=== PATIENT | male | born 1950 | race Caucasian/White ===

== ENCOUNTER → 2018-01-13 08:00 | Outpatient (BNVA) | payer MEDICARE, BC, SELFPAY | PROVIDERS: Visit Provider Student in an Organized Health Care Education/Training Program | DX: S82.851D Displaced trimalleolar fracture of right lower leg, subsequent encounter for closed fracture with routine healing (principal) | CPT/HCPCS: 99213; 73610 ==

== ENCOUNTER 2018-01-13 15:17 | Outpatient (CLI) | payer MEDICARE, BC, SELFPAY ==
--- NOTE | 2018-01-13 08:25 | DI.RAD_ITS ---
SYMPTOMS/DIAGNOSIS: PAIN RIGHT ANKLE: Three views. Comparison 10/05/17. There are again seen side plates and screws transfixing fractures in the distal tibial and fibula. There has been no change in alignment of the orthopedic hardware compared to the prior examination. The fractures appear to be healing well. No new fractures or dislocations are seen. There is soft tissue swelling about the ankle laterally. The bones appear osteopenic suggesting decreased use.
== END 2018-01-13 15:37 ==
PROVIDERS: PCP Family Medicine; Visit Provider Student in an Organized Health Care Education/Training Program
DX: M25.571 Pain in right ankle and joints of right foot (principal); M85.88 Other specified disorders of bone density and structure, other site; S82.851D Displaced trimalleolar fracture of right lower leg, subsequent encounter for closed fracture with routine healing
CPT/HCPCS: 73610

== ENCOUNTER 2018-01-16 00:49 | Outpatient (CLI) | payer MEDICARE, BC, SELFPAY ==
--- NOTE | 2018-01-16 13:12 | DI.CT_ITS ---
SYMPTOM/DIAGNOSIS: ANKLE PAIN, EVALUATE ANKLE UNION, CLOSED FX S82.856J RIGHT ANKLE CT: Multiple contiguous axial images of the right ankle were obtained. Sagittal and coronal reformatted images were evaluated on the Siem[employer] work station. There is artifact from the patient's orthopedic hardware. There are two screws seen in the medial malleolus. The medial malleolar fracture appears healed. There is a well corticated, 0.4 cm. osseous density at the posterior aspect of the medial malleolus which appears to represent an old fracture fragment. There is a side plate and screws seen in the distal fibula. The fracture appears to be healed. There is a 0.9 cm., well corticated osseous density adjacent to the distal aspect of the fibula which likely represents an old fracture fragment. Two well corticated osseous densities are also seen at the anterior aspect of the distal tibial fibular joint, again representing old fracture fragments. There is a single screw seen transfixing the posterior malleolar fracture. Portions of the fracture line are still visualized, particularly inferiorly suggesting an incompletely healed fracture. No new fractures or dislocations are seen. Mild degenerative changes are seen at the ankle joint. There is soft tissue swelling about the ankle. No focal fluid collections are seen. No soft tissue masses are appreciated. IMPRESSION: 1. Post surgical changes of internal fixation of a trimalleolar fracture. 2. Artifact from the patient's orthopedic hardware. 3. Visualization of a short portion of the posterior malleolar fracture suggesting some incomplete healing. 4. Completely healed distal fibula and medial malleolar fractures.
== END 2018-01-16 01:09 ==
PROVIDERS: PCP Family Medicine; Visit Provider Physician Assistant
DX: M25.571 Pain in right ankle and joints of right foot (principal); S82.851D Displaced trimalleolar fracture of right lower leg, subsequent encounter for closed fracture with routine healing; Z47.89 Encounter for other orthopedic aftercare
CPT/HCPCS: 73700

== ENCOUNTER → 2018-01-17 08:10 | Outpatient (BNVA) | payer MEDICARE, BC, SELFPAY | PROVIDERS: PCP Family Medicine; Referring Provider Family Medicine; Visit Provider Student in an Organized Health Care Education/Training Program | DX: R69 Illness, unspecified (principal) ==

== ENCOUNTER 2018-01-17 09:03 | Day surgery (SDC) | payer MEDICARE, BC, SELFPAY ==
[2018-01-17 09:10] VITALS: BP 137/81; PULSE 57; RESP 16; TEMP 36.6; O2SAT 96
[2018-01-17] MEDS: Lactated Ringers 1,000 ML 80 ML IV (09:56)
--- NOTE | 2018-01-17 10:46 | W.PM.DSUDISC ---
Discharge Plan Disposition Patient Disposition: HOME Condition: Good Discharge Details Reason For Visit: Removal of painful hardware, Right Ankle Attending Provider: Adair Lu Primary Care Provider: Natalia Wick Home Meds and New Rx's Prescriptions: New ibuprofen 600 mg tablet 600 mg PO TID PRNQty: 60 RF: 3 acetaminophen 500 mg capsule 1,000 mg PO Q8H PRN (Reason: pain) Qty: 60 RF: 3 No Action fluticasone-salmeterol [Advair Diskus] 1 EACH blister with device 1 puff Inhalation BID RF: 0 sildenafil [Viagra] 50 MG tablet 50 mg PO PRN RF: 0 aspirin 81 MG tablet,delayed release (DR/EC) 81 mg PO DAILY RF: 0 albuterol sulfate [ProAir HFA] 8.5 GM HFA aerosol inhaler 1 puff Inhalation Q4H PRN RF: 0 atorvastatin 40 MG tablet 40 mg PO DAILY Qty: 90 RF: 11 sertraline 100 MG tablet 100 mg PO DAILY RF: 0 lisinopril 10 MG tablet 10 mg PO HS RF: 0 omeprazole 20 MG capsule,delayed release(DR/EC) 20 mg PO HS RF: 0 Finasteride 5 MG tablet 5 mg PO HS RF: 0 Discharge Instructions Additional Instructions: Activity: You may bear weigh as tolerated on the right ankle. Whenever you are mobilizing you should be in the Fracture Walker Boot. You may remove it when not mobilizing. You should keep the leg elevated for the first few days. You may use crutches as needed for support but not required. Dressings: The initial dressings may be removed after 48 hours. The wound may get wet at that point. You should cover with a bandaid until follow-up. Medications: - You should take the Acetaminophen and Ibuprofen for baseline pain control. You may also apply ice. Follow-up: 10 days Equipment/Supplies: Brace Activity:: Elevate Remove Dressings/Wound Care:: 48 hours Shower/Bathe:: 48 hours Diet:: As Tolerated Discharge Orders Discharge Orders: Discharge Order (Routine); Ordered 01/17/18 Ordered By: Adair Lu DS: Diagnosis Discharge Diagnosis (1) Pain from implanted hardware: Status: Acute
--- NOTE | 2018-01-17 11:16 | DI.RAD_ITS ---
SYMPTOMS/DIAGNOSIS: PAINFUL ORTHOPEDIC HARDWARE RIGHT ANKLE IN THE OR: Fluoroscopy Time: 26.3 sec 0.79 mGy Fluoroscopy was utilized by Dr. Lu during the removal of orthopedic hardware in the ankle. Please refer to the procedure report for complete details.
[2018-01-17 11:22] VITALS: BP 110/60; PULSE 61; RESP 13; TEMP 36.1; O2SAT 93
[2018-01-17 11:27] VITALS: BP 107/58; PULSE 58; RESP 13; TEMP 36.3; O2SAT 95
[2018-01-17 11:32] VITALS: BP 104/63; PULSE 59; RESP 13; TEMP 36.3; O2SAT 95
[2018-01-17 11:47] VITALS: BP 115/76; PULSE 63; RESP 16; TEMP 36.4; O2SAT 95
[2018-01-17 12:31] VITALS: BP 134/75; PULSE 57; RESP 16; TEMP 35.9; O2SAT 99
--- NOTE | 2018-01-18 09:24 | ROE_ITS ---
REPORT OF OPERATIVE PROCEDURE DATE OF SURGERY January 17, 2018 PREOPERATIVE DIAGNOSES Painful hardware of right ankle with malunion. POSTOPERATIVE DIAGNOSES Painful hardware of right ankle with malunion. SURGERY Removal of hardware from right ankle. SURGEON Adair Lu M.D. FINDINGS Two screws in the medial aspect of the ankle were removed without difficulty. The ankle was stressed afterwards to make sure that the malunited medial malleolus had no motion, which it did not. ESTIMATED BLOOD LOSS Minimal. ANESTHESIA MAC. COMPLICATIONS None. DISPOSITION The patient was awakened from anesthesia and taken to the PACU in stable condition. INDICATION FOR PROCEDURE Jesus, who goes by Denton, has been recovering from a right ankle fracture status post ORIF about seven months ago. He has had good progress with his activity, however has had some persistent pain over the medial aspect of the right ankle. There was one screw transfixed in the medial malleolar fracture, w hich appeared to be very close to the medial shoulder of the tibial talar joint. As he has increased his activity, he has had pinpoint point deep within the medial side. A CT scan showed that the medial malleolus had healed, although in a slightly malunited position. That one screw was quite close to t he shoulder of the tibial plafond. Given the persistence of the pain, and the re-creation of the symp toms in the office, I did offer operative intervention in the form of screw removal. I discussed the risks of the procedure to include bleeding, infection, pain, stiffness, re-fracture. Despite these ri sks, he elects to proceed. PROCEDURE DESCRIPTION Denton was greeted in the preoperative holding area. His identity was confirmed and the correct side was identified and marked. The consent was reviewed with the patient and signed. The history and phy sical was updated. Denton was taken back to the Operating Room and placed in the supine position. Pr ophylactic antibiotics in the form of cefazolin were given. A General anesthetic was administered. Th e right leg was then prepped with ChloraPrep and draped in standard fashion. A time-out was performed for safe surgery. The surgical site all the way down to the bone was anesthetized with 0.5% bupivacaine with epinephrin e. The inferior, distal, half of the incision was incised sharply. Once down into the deep tissues, s ome blunt dissection was used to create a path overlying the soft tissue of the medial malleolus. Wi th palpation, a K-wire was used to penetrate the deeper tissues and enter into the cannula of the 3.5 -mm cannulated screw. Fluoroscopy was used to assist in this. The K-wire was able to advance through the screw, and then using an #11-blade, I cut soft tissue right around the K-wire to allow entry of t he screwdriver. The screwdriver was then advanced down to the screw head and the screw was removed wi thout difficulty. This was repeated for both screws. Both screws were removed without any difficultie s on either side. Fluoroscopy was then used to take multiple views to show that the medial malleolus was nonmobile. The ankle was stressed both in eversion and inversion without change to the ankle mort ise. The wound was then irrigated. The skin was closed with #4-0 Nylon. This was followed by Xeroform , 4x4s and a Tegaderm. He was placed in a fracture walker boot. At the end of the case, all counts we re correct.
== END 2018-01-17 12:45 | disposition home or self-care (01) ==
PROVIDERS: PCP Family Medicine; Visit Provider Student in an Organized Health Care Education/Training Program
PROC: (CPT 20680; principal; 2018-01-17 11:00)
DX: T84.84XA Pain due to internal orthopedic prosthetic devices, implants and grafts, initial encounter (principal); S82.851S Displaced trimalleolar fracture of right lower leg, sequela; K21.9 Gastro-esophageal reflux disease without esophagitis; I10 Essential (primary) hypertension; X58.XXXS Exposure to other specified factors, sequela
CPT/HCPCS: 20680; 76000; 73600; J0690; J1100; J1885; J2405

== ENCOUNTER 2018-01-27 08:04 | Outpatient (CLI) | payer MEDICARE, BC, SELFPAY ==
[2018-01-27 10:05] LABS: Cholesterol 192 mg/dL (50-200); HDL Cholesterol 57 mg/dL (40-60); LDL CHOLESTEROL 118 mg/dL (<100); Triglyceride 90 mg/dL (30-150)
== END 2018-01-27 08:24 ==
PROVIDERS: PCP Family Medicine; Visit Provider Family Medicine
DX: I10 Essential (primary) hypertension (principal)
CPT/HCPCS: 36415; 80061; 83721

== ENCOUNTER 2018-01-27 08:44 | Outpatient (CLI) | payer MEDICARE, BC, SELFPAY ==
--- NOTE | 2018-01-27 08:42 | DI.RAD_ITS ---
SYMPTOM/DIAGNOSIS: HARDWARE REMOVAL RT ANKLE RIGHT ANKLE: Three views. Comparison is made with 01/13/18. There are again seen plate and screws in the distal tibia and fibula. No evidence of hardware failure is seen. No acute fractures or dislocations are present. There is soft tissue swelling about the ankle, particularly medially. There is a moderate sized spur at the plantar surface of the calcaneus. There is an enthesophyte at the Achilles insertion on the calcaneus. Vascular calcifications are present. IMPRESSION: Stable right ankle.
== END 2018-01-27 09:04 ==
PROVIDERS: PCP Family Medicine; Visit Provider Physician Assistant
DX: S82.851D Displaced trimalleolar fracture of right lower leg, subsequent encounter for closed fracture with routine healing (principal); M79.89 Other specified soft tissue disorders; M77.31 Calcaneal spur, right foot
CPT/HCPCS: 36415; 80061; 83721; 73610

== ENCOUNTER → 2018-04-11 08:10 | Outpatient (BNVA) | payer MEDICARE, BC, SELFPAY | PROVIDERS: PCP Family Medicine; Visit Provider Nurse Practitioner Gerontology | DX: R69 Illness, unspecified (principal) | CPT/HCPCS: 99204 ==

== ENCOUNTER 2018-04-11 09:31 | Outpatient (CLI) | payer MEDICARE, BC, SELFPAY ==
[2018-04-11 10:00] LABS: Abs Immature Grans 0.03 k/cumm (0.0-0.09); Absolute Basophil Count 0.02 k/cumm (0.0-0.2); Absolute Eosinophil Count 0.05 k/cumm (0.0-0.7); Absolute Lymphocyte Count 1.06 k/cumm (1.2-3.4); Absolute Neutrophil Count 4.11 k/cumm (1.2-6.7); Basophils % 0.3; Eosinophils % 0.9; HCT 46.9 % (40.0-50.0); Immature Grans % 0.5; Lymphocytes % 18.4; Mean Corp. HGB Concentration 34.1 g/dL (32.0-36.0); Mean Corpuscular Hemoglobin 33.6 pg (27.0-33.0); Mean Corpuscular Volume 98.5 fL (80-95); Mean Platelet Volume 9.8 fL (8.0-11.0); Monocytes % 8.7; Neutrophils % 71.2; Platelet Count 205 x1000/uL (130-400); RBC 4.76 m/cumm (4.50-6.00); White Blood Cell Count 5.77 k/cumm (4.4-10.8)
[2018-04-11 10:59] LABS: ALT 30 U/L (12-78); AST 17 U/L (15-37); Albumin 3.8 g/dL (3.4-5.0); Alkaline Phosphatase 89 U/L (46-116); BUN 21 mg/dL (7-18); Bilirubin, Total 0.5 mg/dL (0.2-1.0); CREATININE 0.98 mg/dL (0.70-1.30); Chloride 102 mmol/L (98-107); Cholesterol 178 mg/dL (50-200); Glucose 107 mg/dL (70-100); HDL Cholesterol 53 mg/dL (40-60); LDL CHOLESTEROL 103 mg/dL (<100); Potassium 4.8 mmol/L (3.5-5.1); Sodium 140 mmol/L (136-145); Total Protein 6.8 g/dL (6.4-8.2); Triglyceride 106 mg/dL (30-150)
[2018-04-11 11:05] LABS: Calcium 9.6 mg/dL (8.5-10.1)
[2018-04-12 10:32] LABS: PSA, Screening 0.7 ng/ml (0-4.5)
== END 2018-04-11 09:51 ==
PROVIDERS: Family Medicine; PCP Family Medicine; Visit Provider Nurse Practitioner Gerontology
DX: N40.1 Benign prostatic hyperplasia with lower urinary tract symptoms (principal); J45.909 Unspecified asthma, uncomplicated; R39.9 Unspecified symptoms and signs involving the genitourinary system; I10 Essential (primary) hypertension; E78.5 Hyperlipidemia, unspecified; Z12.5 Encounter for screening for malignant neoplasm of prostate; N32.81 Overactive bladder
CPT/HCPCS: 51798; 80053; 80061; 83721; 84153; 99204; 99215; 85025

== ENCOUNTER → 2018-05-08 08:16 | Outpatient (BNVA) | payer MEDICARE, BC, SELFPAY | PROVIDERS: PCP Family Medicine; Visit Provider Nurse Practitioner Gerontology | DX: N32.81 Overactive bladder (principal) | CPT/HCPCS: 99213 ==

== ENCOUNTER → 2018-08-28 12:44 | Outpatient (BNVA) | payer MEDICARE, BC, SELFPAY | PROVIDERS: PCP Family Medicine; Referring Provider Family Medicine; Visit Provider Physical Therapy Assistant | DX: Z12.11 Encounter for screening for malignant neoplasm of colon (principal); Z86.010 Personal history of colon polyps; I10 Essential (primary) hypertension ==

== ENCOUNTER 2018-09-05 07:59 | Day surgery (SDC) | payer MEDICARE, BC, SELFPAY ==
--- NOTE | 2018-09-05 07:12 | W.PM.DSUDISC ---
Discharge Plan Disposition Patient Disposition: HOME Condition: Good Discharge Details Reason For Visit: Colonoscopy Attending Provider: Mulu Burt Primary Care Provider: Natalia Wick Home Meds and New Rx's Prescriptions: Continued finasteride 5 mg tablet 5 mg PO HS RF: 0 lisinopril 20 mg tablet 20 mg PO DAILY Qty: 90 RF: 5 Shingrix Adjuvant Component-PF suspension 1 ml IM ONCE Qty: 0.5 RF: 1 Myrbetriq 25 mg tablet extended release 24 hr 25 mg PO DAILY Qty: 90 RF: 3 fluticasone propion-salmeterol [Advair Diskus] 1 EACH blister with device 1 puff Inhalation BID RF: 0 sildenafil [Viagra] 50 MG tablet 50 mg PO PRN RF: 0 aspirin 81 MG tablet,delayed release (DR/EC) 81 mg PO DAILY RF: 0 atorvastatin 40 MG tablet 40 mg PO DAILY Qty: 90 RF: 11 albuterol sulfate [ProAir HFA] 90 mcg/actuation HFA aerosol inhaler 1 puff Inhalation Q4H PRN (Reason: shortness of breath or wheezing) Qty: 8.5 RF: 6 tamsulosin [Flomax] 0.4 mg capsule 0.4 mg PO DAILY Qty: 90 RF: 4 ibuprofen 600 mg tablet 600 mg PO TID PRNQty: 60 RF: 3 acetaminophen 500 mg capsule 1,000 mg PO Q8H PRN (Reason: pain) Qty: 60 RF: 3 sertraline 100 MG tablet 100 mg PO DAILY RF: 0 omeprazole 20 MG capsule,delayed release(DR/EC) 20 mg PO HS RF: 0 Discontinued bisacodyl [Dulcolax (bisacodyl)] 5 mg tablet,delayed release (DR/EC) 5 mg PO ONCE Qty: 4 RF: 0 polyethylene glycol 3350 17 gram/dose powder 238 g PO ONCE Qty: 238 RF: 0 Discharge Instructions Instructions: Colonoscopy (DC), Diverticulosis (DC) Additional Instructions: Findings: Mild diverticulosis Follow up: 5 years Please call if you develop: fevers >101.5 Nausea or Vomiting Abdominal pain that is not transient DAY SURGERY UNIT POST COLONOSCOPY INSTRUCTIONS 1. Because there will be medication in your system for the next 24 hours, you may feel a little sleepy. Your coordination will be affected. Therefore: a. Do not drive or operate dangerous equipment for 24 hours. b. Do not drink alcohol beverages for 24 hours (not even beer). c. Plan to go home and rest for the day. 2. Generally there are no restrictions on your activity after a day or so has gone by, but you may feel a bit fatigued for a few days. 3 After you arrive home you may have a light meal and return to a normal diet as you can tolerate it without feeling sick to your stomach. 4. After surgery, you may feel pain or discomfort. This should be only transient, but if it persists please contact your doctor. 5. If there are any questions regarding the findings of your procedure, please feel free to contact your doctor. 6. If you are unable to contact your doctor with a problem, contact the hospital at [phone]. 7. Continue all your regular medications unless directed otherwise. I understand the above instructions and have no questions. Signature of Patient or Responsible Adult Escort Date/Time Name of Responsible Adult Escort Signature of Nurse Date/Time Activity:: Activity as Tolerated Diet:: high fiber diet Discharge Orders Discharge Orders: Discharge Order (Routine); Ordered 09/05/18 Ordered By: Mulu Burt DS: Diagnosis Discharge Diagnosis (1) S/P colonoscopy: Status: Acute (2) Diverticulosis: Status: Acute
--- NOTE | 2018-09-05 07:13 | COLE_ITS ---
Date of service: 09/05/18 Time of Service: 09:52 Colonoscopy Report Date of procedure: 09/05/18 Pre-op diagnosis general: Hx of polyps, Family history of colon Cancer Post-op diagnosis procedure note: same (mild diverticulosis) Procedure: Colonoscopy Surgeon: Mulu Burt Anesthesia proc note operative: other (General/ ASA 2/Carmelita Andrews, SADIQ) Estimated blood loss (mL): 0 Pathology: none sent Complications: None Disposition: same day Indications: Mr. Anne is a pleasant 68 year old with a family history of colon Cancer and a personal history of polyps seen in the office for a follow up Colonoscopy. Risks, benefits and complications have been reviewed. Complications include but are not limited to bleeding, pain, perforation, missed small lesion/polyp, sore throat, aspiration and adverse reaction to the medic ations. Questions were entertained and answered to their satisfaction and they wished to proceed. No guarantees were given or implied. Prep: Miralax/Dulcolax Procedure Start Time: :52 Procedure End Time: 10:25 Retraction Time: 21 Findings: Mild diverticulosis No polyps this time Procedure Description: After informed consent was obtained the patient was taken to the procedure room and placed in a left decubitous position. Monitors were applied and a time out was done. The patients name, date of , procedure, allergies to medications and metal in their body was reviewed. The patient was then sedated. Once sedated and comfortable a rectal exam was done. External exam was normal. Internal exam revealed a normal sphincter tone and no palpable masses. The prostate felt smooth. The scope was then introduced and retro-flexed. No internal hemorrhoids were identified. The scope was then advanced to the cecum without difficulty. His sigmoid colon is tortuous. Diverticulosis of the descending colon and sigmoid colon. The TI and appendiceal orifice were identified. The prep was good. The scope was then slowly retracted over 21 minutes back into the rectum. There were no polyps identified. The scope was removed and the patient was woken up and taken back to Same day surgery in stable condition. The patient tolerated the procedure well and there were no immediate complications. Follow up: The patient should follow up in 5 years, due to her family history, unless they develop changes in bowel habits or other new gastrointestinal complaints.
[2018-09-05 08:18] VITALS: BP 123/83; PULSE 58; RESP 18; TEMP 35.2; O2SAT 95
[2018-09-05] MEDS: Lactated Ringers 1,000 ML 80 ML IV (08:45)
[2018-09-05 11:00] VITALS: BP 119/73; PULSE 54; RESP 16; TEMP 35.2; O2SAT 99
== END 2018-09-05 11:10 | disposition home or self-care (01) ==
LOC: SUR 07:59
PROVIDERS: PCP Family Medicine; Visit Provider Surgery
PROC: 0DJD8ZZ Inspection of Lower Intestinal Tract, Via Natural or Artificial Opening Endoscopic (ICD-10-PCS; CPT 45378; principal; 2018-09-05 10:00)
DX: Z12.11 Encounter for screening for malignant neoplasm of colon (principal); K57.30 Diverticulosis of large intestine without perforation or abscess without bleeding; K63.89 Other specified diseases of intestine; Z86.010 Personal history of colon polyps
CPT/HCPCS: G0105

== ENCOUNTER → 2018-09-06 08:07 | Outpatient (BNVA) | payer MEDICARE, BC, SELFPAY | PROVIDERS: PCP Family Medicine; Visit Provider Nurse Practitioner Gerontology | DX: N32.81 Overactive bladder (principal) | CPT/HCPCS: 99213 ==

== ENCOUNTER 2018-11-22 13:19 | Outpatient (CLI) | payer MEDICARE, BC, SELFPAY ==
--- NOTE | 2018-11-22 11:21 | DI.RAD_ITS ---
SYMPTOMS/DIAGNOSIS: ANKLE PAIN AFTER OPEN REDUCTION AND INTERNAL FIXATION RIGHT ANKLE: When compared with the prior study of 01/27/2018, there has been no appreciable interval change. Again noted is the sideplate and screw fixation device affixed to the distal fibula and distal tibial screw. There are mild degenerative changes involving the mortise joint.
== END 2018-11-22 13:39 ==
PROVIDERS: PCP Family Medicine; Referring Provider Family Medicine; Visit Provider Student in an Organized Health Care Education/Training Program
DX: M25.571 Pain in right ankle and joints of right foot (principal); Z98.890 Other specified postprocedural states; Z87.81 Personal history of (healed) traumatic fracture; I10 Essential (primary) hypertension; G89.29 Other chronic pain; Z96.7 Presence of other bone and tendon implants
CPT/HCPCS: 20605; 99213; 73610; J1030

== ENCOUNTER → 2019-01-04 09:47 | Outpatient (BNVA) | payer MEDICARE, BC, SELFPAY | PROVIDERS: PCP Family Medicine; Referring Provider Family Medicine; Visit Provider Student in an Organized Health Care Education/Training Program | DX: M25.571 Pain in right ankle and joints of right foot; G89.29 Other chronic pain; Z98.890 Other specified postprocedural states; I10 Essential (primary) hypertension | CPT/HCPCS: 99212; 99213 ==

== ENCOUNTER 2019-02-09 01:39 | Outpatient (CLI) | payer MEDICARE, BC, SELFPAY ==
--- NOTE | 2019-02-09 08:43 | DI.CT_ITS ---
EXAM: CT LOWER EXTREMITY RT WO CLINICAL HISTORY: Tibiotalar pain after ankle fracture fixation,rt ankle pain,M25.571, G89.29 TECHNIQUE: Images were performed from distal 3rd of the tibia and fibula through the metatarsal jacqueline on without IV contrast.. COMPARISON: CT lower extremity RT wo from 01/16/2018 XR ANKLE RT COMPLETE from 11/22/2018 FINDINGS: There is soft tissue edema greatest around the medial malleolus. There is some artifact related to the presence of orthopedic hardware. The bones appear osteoporotic. No acute fracture is seen. There is slight remaining lucency at the posterior malleolar fracture. There are several small corticated b silvana fragments adjacent to both malleoli. No talar dome defect is seen. There are some degenerative ch anges at tibiotalar joint. No abnormal lucencies are seen around the hardware. Heel spurs are seen. IMPRESSION: The bones appear osteoporotic. Postsurgical and degenerative changes are noted. No acute abnormality is seen.
== END 2019-02-09 01:59 ==
PROVIDERS: PCP Family Medicine; Visit Provider Student in an Organized Health Care Education/Training Program
DX: M25.571 Pain in right ankle and joints of right foot (principal); M81.0 Age-related osteoporosis without current pathological fracture; M79.89 Other specified soft tissue disorders; M19.071 Primary osteoarthritis, right ankle and foot; M77.31 Calcaneal spur, right foot; G89.29 Other chronic pain
CPT/HCPCS: 73700

== ENCOUNTER → 2019-02-15 14:05 | Outpatient (BNVA) | payer MEDICARE, BC, SELFPAY | PROVIDERS: PCP Family Medicine; Referring Provider Family Medicine; Visit Provider Student in an Organized Health Care Education/Training Program | DX: M19.171 Post-traumatic osteoarthritis, right ankle and foot (principal) | CPT/HCPCS: 99213 ==

== ENCOUNTER 2019-03-26 15:42 | Outpatient (CLI) | payer MEDICARE, BC, SELFPAY ==
[2019-03-26 16:36] LABS: ALT 28 U/L (16-63); AST 18 U/L (15-37); Alkaline Phosphatase 90 U/L (46-116); Anion Gap 8.9 mmol/L (3-11); BUN 25 mg/dL (7-18); CO2 29.1 mmol/L (21.0-32.0); CREATININE 1.31 mg/dL (0.70-1.30); Calcium 9.2 mg/dL (8.5-10.1); Calculated LDL 102 mg/dL; Chloride 102 mmol/L (98-107); Cholesterol 179 mg/dL (<200); Estimated GFR 54.09 (mL/min/1.73m2); Glucose 88 mg/dL (74-106); HDL Cholesterol 63 mg/dL (40-60); Potassium 4.2 mmol/L (3.5-5.1); Sodium 140 mmol/L (136-145); Total Protein 6.8 g/dL (6.4-8.2); Triglyceride 70 mg/dL (<150)
== END 2019-03-26 16:02 ==
PROVIDERS: PCP Family Medicine; Visit Provider Family Medicine
DX: I10 Essential (primary) hypertension (principal)
CPT/HCPCS: 36415; 80053; 80061

== ENCOUNTER → 2019-04-30 08:01 | Outpatient (BNVA) | payer MEDICARE, BC, SELFPAY | PROVIDERS: PCP Family Medicine; Referring Provider Family Medicine; Visit Provider Nurse Practitioner Gerontology | DX: N32.81 Overactive bladder (principal); I10 Essential (primary) hypertension | CPT/HCPCS: 99213 ==

== ENCOUNTER → 2020-05-27 15:18 | Outpatient (BNVA) | payer MEDICARE, BC, SELFPAY | PROVIDERS: PCP Family Medicine; Referring Provider Family Medicine; Visit Provider Nurse Practitioner Gerontology | DX: N32.81 Overactive bladder (principal) | CPT/HCPCS: 99214 ==

== ENCOUNTER → 2021-06-03 14:52 | Outpatient (BNVA) | payer MEDICARE, BC, SELFPAY | PROVIDERS: PCP Family Medicine; Referring Provider Family Medicine; Visit Provider Nurse Practitioner Gerontology | DX: R69 Illness, unspecified (principal) ==

== ENCOUNTER 2021-06-11 02:33 | Outpatient (CLI) | payer MEDICARE, BC, SELFPAY ==
[2021-06-11 08:28] LABS: ALT 38 U/L (16-63); AST 34 U/L (15-37); Albumin 3.6 g/dL (3.4-5.0); Alkaline Phosphatase 93 U/L (46-116); Anion Gap 6.4 mmol/L (3-11); BUN 22 mg/dL (7-18); Bilirubin, Total 0.5 mg/dL (0.2-1.0); CO2 30.6 mmol/L (21.0-32.0); CREATININE 1.1 mg/dL (0.70-1.30); Calcium 8.8 mg/dL (8.5-10.1); Calculated LDL 86 mg/dL (<100); Chloride 104 mmol/L (98-107); Cholesterol 160 mg/dL (<200); Glucose 104 mg/dL (74-106); HDL Cholesterol 52 mg/dL (40-60); Potassium 4.8 mmol/L (3.5-5.1); Sodium 141 mmol/L (136-145); Total Protein 6.7 g/dL (6.4-8.2); Triglyceride 114 mg/dL (<150)
[2021-06-11 17:48] LABS: PSA, Diagnostic 0.6 ng/mL (0.0-6.5)
== END 2021-06-11 02:34 | disposition home or self-care (01) ==
LOC: LBO 02:34
PROVIDERS: PCP Family Medicine; Visit Provider Family Medicine
DX: E78.5 Hyperlipidemia, unspecified (principal); I10 Essential (primary) hypertension; N40.0 Benign prostatic hyperplasia without lower urinary tract symptoms
CPT/HCPCS: 36415; 80053; 80061; 84153

== ENCOUNTER → 2021-08-27 08:49 | Outpatient (BNVA) | payer MEDICARE, BC, SELFPAY | PROVIDERS: PCP Family Medicine; Visit Provider Nurse Practitioner Gerontology | DX: N32.81 Overactive bladder (principal) | CPT/HCPCS: 51798; 99214 ==

== ENCOUNTER 2022-03-15 11:58 | Outpatient (CLI) | payer MEDICARE, BC, SELFPAY ==
--- NOTE | 2022-03-15 11:45 | DI.RAD_ITS ---
Exam(s) XR SHOULDER LT COMPLETE 2+V EXAM: XR SHOULDER LT COMPLETE 2+V CLINICAL HISTORY: bilateral shoulder pain. TECHNIQUE: 2D digital imaging was performed. Three views. COMPARISON: No exams were available for comparison FINDINGS: BONES: No acute fracture is present. No bony destructive lesion is seen. Spurring at lesser tuberosi ty. JOINTS: No dislocation present. Mild spurring AC joint. Minimal spurring at glenoid. Glenohumeral joint space is maintained. SOFT TISSUE: Normal. IMPRESSION: Mild degenerative changes. DATA REPOSITORY: RADIATION DOSE DELIVERED:
--- NOTE | 2022-03-15 11:45 | DI.RAD_ITS ---
Exam(s) XR SHOULDER RT COMPLETE 2+V EXAM: XR SHOULDER RT COMPLETE 2+V CLINICAL HISTORY: bilateral shoulder pain. TECHNIQUE: 2D digital imaging was performed. Three views. COMPARISON: CR XR SHOULDER LT COMPLETE 2+V from 03/15/2022 FINDINGS: BONES: No acute fracture is present. No bony destructive lesion is seen. JOINTS: No dislocation present. Mild spurring inferior AC joint and undersurface of the acromion. C alcification superior to AC joint. Glenohumeral joint space is maintained. SOFT TISSUE: Normal. IMPRESSION: Mild degenerative changes of the AC joint. DATA REPOSITORY: RADIATION DOSE DELIVERED:
== END 2022-03-15 11:59 | disposition home or self-care (01) ==
LOC: DIORS 11:58
PROVIDERS: PCP Family Medicine; Referring Provider Family Medicine; Visit Provider Student in an Organized Health Care Education/Training Program
DX: M67.911 Unspecified disorder of synovium and tendon, right shoulder (principal); M75.82 Other shoulder lesions, left shoulder
CPT/HCPCS: 20610; 99213; 73030; J1040

== ENCOUNTER 2022-05-24 10:11 | Outpatient (CLI) | payer MEDICARE, BC, SELFPAY ==
[2022-05-24 13:09] LABS: ALT 29 U/L (16-63); AST 23 U/L (15-37); Alkaline Phosphatase 82 U/L (46-116); BUN 23 mg/dL (7-18); Bilirubin, Total 0.6 mg/dL (0.2-1.0); Calcium 9.3 mg/dL (8.5-10.1); Calculated LDL 87 mg/dL (<100); Chloride 101 mmol/L (98-107); Cholesterol 171 mg/dL (<200); Estimated GFR 79.47 (mL/min/1.73m2); Glucose 109 mg/dL (74-106); HDL Cholesterol 65 mg/dL (40-60); Potassium 4.4 mmol/L (3.5-5.1); Sodium 137 mmol/L (136-145); Total Protein 7.2 g/dL (6.4-8.2); Triglyceride 98 mg/dL (<150)
[2022-05-25 10:13] LABS: PSA, Diagnostic 0.7 ng/mL (<=6.5)
== END 2022-05-24 10:12 | disposition home or self-care (01) ==
LOC: LOS 10:11
PROVIDERS: PCP Family Medicine; Referring Provider Family Medicine; Visit Provider Family Medicine
DX: E78.5 Hyperlipidemia, unspecified (principal); I10 Essential (primary) hypertension; R31.9 Hematuria, unspecified
CPT/HCPCS: 36415; 80053; 80061; 84153

== ENCOUNTER → 2022-06-17 08:13 | Outpatient (BNVA) | payer MEDICARE, BC, SELFPAY | PROVIDERS: PCP Family Medicine; Referring Provider Family Medicine; Visit Provider Student in an Organized Health Care Education/Training Program | DX: M75.82 Other shoulder lesions, left shoulder; M67.911 Unspecified disorder of synovium and tendon, right shoulder | CPT/HCPCS: 20610; J1040 ==

== ENCOUNTER → 2022-10-04 14:21 | Outpatient (BNVA) | payer MEDICARE, BC, SELFPAY | PROVIDERS: PCP Family Medicine; Referring Provider Family Medicine | DX: M67.911 Unspecified disorder of synovium and tendon, right shoulder (principal) | CPT/HCPCS: 99213 ==

== ENCOUNTER 2022-10-21 01:25 | Outpatient (CLI) | payer MEDICARE, BC, SELFPAY ==
--- NOTE | 2022-10-21 09:00 | DI.MRI_ITS ---
Exam(s) MR UPPER JOINT RT WO EXAM: MR UPPER JOINT RT WO CLINICAL HISTORY: pain,DYSFUNCTION RT ROTATOR CUFF,M67.911. TECHNIQUE: Multiplanar multisequence MRI was performed. COMPARISON: Plain films 15 March 2021 FINDINGS: BONES: There is no fracture or contusion pattern. JOINTS:The acromioclavicular joint shows moderate inferior spurring and fluid. There is apparent impi ngement on the distal supraspinatus muscle tendon junction. There is a small bony density seen superi or to the AC joint. There is also spurring at the tip of the acromion. The glenohumeral joint shows a small amount of fluid. TENDONS: Supraspinatus: Thickening and edema but no focal tear Infraspinatus: Unremarkable. Subscapularis: Unremarkable. Teres Minor: Unremarkable. Biceps and [place]: Fluid around biceps tendon. Abnormal thickening of proximal biceps tendon with int ermediate signal. Longitudinally oriented tear through the biceps tendon. MUSCLES: Unremarkable. No atrophy. GLENOID LABRUM: Unremarkable on this noncontrast examination. SOFT TISSUES: Unremarkable. OTHER: Subacromial and subdeltoid bursae shows localized fluid which may arise from the AC joint.. IMPRESSION: Degenerative changes of the AC joint with apparent impingement on the supraspinatus muscle tendon arnaud ction, causing thickening and edema of the supraspinatus tendon. Longitudinally oriented tear through biceps tendon with thickening and edema proximally near the anch or. DATA REPOSITORY:
== END 2022-10-21 01:45 ==
LOC: DI 01:25
PROVIDERS: PCP Family Medicine; Visit Provider Student in an Organized Health Care Education/Training Program
DX: M19.012 Primary osteoarthritis, left shoulder; S46.211A Strain of muscle, fascia and tendon of other parts of biceps, right arm, initial encounter; X58.XXXA Exposure to other specified factors, initial encounter
CPT/HCPCS: 73221

== ENCOUNTER → 2022-11-29 14:34 | Outpatient (BNVA) | payer MEDICARE, BC, SELFPAY | PROVIDERS: PCP Family Medicine; Referring Provider Family Medicine; Visit Provider Student in an Organized Health Care Education/Training Program | DX: M67.911 Unspecified disorder of synovium and tendon, right shoulder (principal) | CPT/HCPCS: 20611; J1040 ==

== ENCOUNTER → 2023-01-04 14:20 | Outpatient (BNVA) | payer MEDICARE, BC, SELFPAY | PROVIDERS: PCP Family Medicine; Visit Provider Nurse Practitioner Gerontology | DX: N32.81 Overactive bladder (principal); N40.1 Benign prostatic hyperplasia with lower urinary tract symptoms; R39.89 Other symptoms and signs involving the genitourinary system | CPT/HCPCS: 51798; 99213 ==

== ENCOUNTER → 2023-03-03 13:45 | Outpatient (BNVA) | payer MEDICARE, BC, SELFPAY | PROVIDERS: PCP Family Medicine; Referring Provider Family Medicine; Visit Provider Student in an Organized Health Care Education/Training Program | DX: M67.911 Unspecified disorder of synovium and tendon, right shoulder (principal) | CPT/HCPCS: 20611; J1040 ==

== ENCOUNTER → 2023-05-13 08:01 | Outpatient (BNVA) | payer MEDICARE, BC, SELFPAY | PROVIDERS: PCP Family Medicine; Referring Provider Family Medicine | DX: M67.911 Unspecified disorder of synovium and tendon, right shoulder (principal); M67.813 Other specified disorders of tendon, right shoulder | CPT/HCPCS: 99213 ==

== ENCOUNTER 2023-05-31 11:21 | Day surgery (SDC) | payer MEDICARE, BC, SELFPAY ==
[2023-05-31] VITALS (13 sets, daily range): BP systolic 134–155; BP diastolic 62–112; PULSE 48–63; RESP 9–18; TEMP 35.9–36.6; O2SAT 95–100; BMI 29.9
--- NOTE | 2023-05-31 10:45 | PDOC.DSDIS_ITS ---
Date of service: 05/31/23 Time of Service: 14:21 Discharge Plan Disposition Patient Disposition: Home Condition: Good Discharge Details Reason For Visit: Right biceps tendinosis Attending Provider: Adair Lu Primary Care Provider: Natalia Wick Home Meds and New Rx's Prescriptions: New acetaminophen 500 mg tablet 500 mg PO Q6H PRN (Reason: pain) Qty: 60 2RF tramadol 50 mg tablet 50 mg PO Q6H PRN (Reason: severe postoperative pain) Qty: 10 0RF Rx Instructions: Take one tablet up to every 6 hours as needed for severe pain ibuprofen 600 mg tablet 600 mg PO TID PRN (Reason: pain) Qty: 60 0RF Continued diphth,pertus(acell),tetanus 2.5-8-5 Lf-mcg-Lf/0.5mL syringe 0.5 ml IM ONCE Qty: 0.5 0RF Rx Instructions: as a single dose albuterol sulfate [ProAir HFA] 90 mcg/actuation HFA aerosol inhaler 1 puff Inhalation Q4H PRN (Reason: shortness of breath or wheezing) Qty: 18 6RF atorvastatin 40 mg tablet 40 mg PO DAILY Qty: 90 11RF sertraline 100 mg tablet 100 mg PO DAILY Qty: 90 4RF trazodone 50 mg tablet 50 mg PO QHS PRN (Reason: sleep) Qty: 90 4RF finasteride 5 mg tablet 5 mg PO HS Qty: 90 5RF lisinopril 20 mg tablet 20 mg PO DAILY Qty: 90 5RF tamsulosin [Flomax] 0.4 mg capsule 0.4 mg PO DAILY Qty: 90 4RF omeprazole 20 mg capsule,delayed release(DR/EC) 20 mg PO HS Qty: 90 5RF Myrbetriq 25 mg tablet extended release 24 hr 25 mg PO DAILY Qty: 90 3RF Discharge Instructions Stand Alone Forms: Tabitha Sampson w/BT Referrals: Adair Lu MD [ [facility] STAFF PHYSICIAN] - Equipment/Supplies: Sling Activity:: Activity as Tolerated Remove Dressings/Wound Care:: Do Not Remove Shower/Bathe:: 72 hours and Cover Diet:: As Tolerated Discharge Orders Discharge Orders: Discharge Order (Routine); Ordered 05/31/23 Ordered By: Diamond Rainey
[2023-05-31] MEDS: Acetaminophen 500 MG TAB 1000 MG PO (12:13)
[2023-05-31] MEDS: Celecoxib 200 MG CAP 400 MG PO (12:13)
[2023-05-31] MEDS: Lactated Ringers 1,000 ML 80 ML IV (12:14)
--- NOTE | 2023-05-31 12:27 | W.ANESPRE ---
General Info Date of Service Date Performed: 05/31/23 Height: 5 ft 7 in Weight: 86.7 kg Body Mass Index (BMI): 29.9 Surgical Procedure: Operation Date: 05/31/23 14:55 Proposed Procedure Side Surgeon p Shoulder Arthroscopy w/Biceps Tenotomy, RTC Debridement Right Adair Lu MD Meds Allergies and Home Medications Allergies Allergy/AdvReac Type Severity Reaction Status Date / Time tamsulosin AdvReac muscle Unverified 05/27/23 11:51 weakness terazosin AdvReac dizziness Unverified 05/27/23 11:51 Home Medication Medication Instructions Recorded albuterol sulfate 90 mcg/actuation 1 puff inhalation Q4H PRN 04/27/21 aerosol inhaler (ProAir HFA) shortness of breath or wheezing #18 grams finasteride 5 mg tablet 5 mg PO HS #90 tabs 04/12/22 lisinopril 20 mg tablet 20 mg PO DAILY #90 tabs 04/12/22 tamsulosin 0.4 mg capsule (Flomax) 0.4 mg PO DAILY #90 caps 05/10/22 atorvastatin 40 mg tablet 40 mg PO DAILY #90 tab-caps 05/24/22 sertraline 100 mg tablet 100 mg PO DAILY #90 tabs 05/24/22 trazodone 50 mg tablet 50 mg PO QHS PRN sleep #90 tabs 05/24/22 omeprazole 20 mg capsule,delayed 20 mg PO HS #90 caps 07/05/22 release mirabegron 25 mg tablet,extended 25 mg PO DAILY #90 tabs 11/02/22 release 24 hr (Myrbetriq) diphth,pertus(acell),tetanus 2.5 0.5 ml IM ONCE #0.5 mL 12/20/22 Lf unit-8 mcg-5 Lf/0.5mL IM syringe Current Visit Medications: Current Medications Generic Name Dose Route Start Last Admin Trade Name Freq PRN Reason Stop Dose Admin Acetaminophen 1,000 mg 05/31/23 06:00 05/31/23 12:13 Acetaminophen 500 Mg Tab PO 05/31/23 18:00 1,000 mg PREOP KUNAL Administration Celecoxib 400 mg 05/31/23 06:00 05/31/23 12:13 Celecoxib 200 Mg Cap PO 05/31/23 18:00 400 mg PREOP KUNAL Administration Ringer's Solution 1,000 mls @ 80 mls/hr 05/31/23 06:00 05/31/23 12:14 IV 06/29/23 23:59 80 mls/hr INFUSION KUNAL Administration Cefazolin Sodium/Dextrose 2 gm in 50 mls @ 100 mls/hr 05/31/23 06:00 Ancef Duplex IVPB 05/31/23 16:00 PREOP KUNAL IV Miscellaneous Supplies 1 each 05/31/23 06:00 Iv Access IV 06/29/23 23:59 DIRECTED KUNAL Sodium Chloride 0 ml 05/31/23 06:00 Normal Saline Flush 10 Ml Syr IV 06/29/23 23:59 PRN PRN Sodium Chloride 0 ml 05/31/23 06:00 Normal Saline 10 Ml Vial IJ 06/29/23 23:59 DIRECTED PRN Sterile Water 0 ml 05/31/23 06:00 Water,Injection,Sterile 10 Ml Vial IJ 06/29/23 23:59 DIRECTED PRN Tramadol HCl 50 mg 05/31/23 10:44 Tramadol 50 Mg Tab PO 06/30/23 10:43 Q4H PRN PRN PFSH Active Problems Active Problems: Problem Status Onset Code Biceps tendinosis of right shoulder M67.813 Dysfunction of right rotator cuff M67.911 Sensorineural hearing loss, unilateral, left ear, with unrestricted hearing on the contralateral side H90.42 OAB (overactive bladder) N32.81 RBBB (right bundle branch block) I45.10 Obesity, Class I, BMI 30-34.9 E66.9 Hyperlipidemia E78.5 GERD (gastroesophageal reflux disease) K21.9 Essential hypertension I10 BPH (benign prostatic hyperplasia) 09/28/17 N40.0 Asthma J45.909 Anxiety F41.9 Adenomatous colon polyp D12.6 Medical History Medical History (Updated 05/27/23 @ 11:49 by Aleksandar Bhatt) Tendinitis of left rotator cuff Depo-Medrol injection: 06/17/2022; 03/15/2022 Bruise Deafness in right ear Sensation of fullness in both ears Dysfunction of left eustachian tube Right ankle pain Diverticulosis H/O adenomatous polyp of colon (03/30/13) Colonoscopy at [facility] with Dr Cr Mcnulty showed sessile polyp and turtuous sigmoid with scattered divertic. Asymmetrical sensorineural hearing loss Pain from implanted hardware R ankle Posterior tibial tendinitis, right leg (11/16/17) Hematuria NEG CYSTO PER [facility] RECORDS Duodenitis EROSIVE PER [facility] RECORDS Decreased hearing of right ear (10/20/17) Closed trimalleolar fracture of right ankle with routine healing (06/17/17) S/P SURGERY 06/12 Surgical History Surgical History S/P colonoscopy (~09/05/18) History of bilateral carpal tunnel release History of neck surgery History of colonoscopy Status post open reduction with internal fixation (ORIF) of fracture of ankle Fracture, Open Treatment 05/2017 RIGHT ANKLE PER [facility] RECORDS Tobacco Smoking/Tobacco Use Status: Never Passive smoking exposure: Yes Second hand exposure: Yes Alcohol Alcohol Intake: current Alcohol intake frequency: a few times a week Alcohol type: hard liquor Substance Use Substance use: Never Substance use type: does not use Vital Signs and Lab Results Vital Signs Most Recent Vital Signs in EMR: Most Recent Vital Signs Temp Pulse Resp BP Pulse Ox 36.4 C L 63 16 155/90 H 95 05/31/23 11:45 05/31/23 11:45 05/31/23 11:45 05/31/23 11:45 05/31/23 11:45 Lab Results Blood Type / Crossmatch: No Data to Display Complete Blood Count: No Data to Display Complete Metabolic Panel: No Data to Display Liver Function Panel: No Data to Display Coagulation Panel: No Data to Display Cardiac Panel: No Data to Display Arterial Blood Gas: No Data to Display Venous Blood Gas: No Data to Display Pancreas Panel: No Data to Display Thyroid Panel: No Data to Display Infectious Disease: No Data to Display Blood Cultures: No Data to Display Toxicology Panel: No Data to Display Anesthesia Assessment and Plan Anesthesia History Personal History: No History of Anesthesia Complications Family History: No Family History of Anesthesia Complications Exercise Tolerance Exercise Tolerance: Metabolic Equivalents>4 Pertinent Negatives Pertinent Negatives: No Symptoms of GERD, No Major Cardiovascular Symptoms or Complaints, No Major Pulmonary Symptoms or Complaints and No History of CVA/TIA Cardiac & Pulmonary Exam Cardiac Exam: Normal S1/S2 Heart Sounds Pulmonary Exam: Clear Bilateral Breath Sounds Implantable Cardiac Device Does patient have a Pacemaker or an ICD?: No Airway Exam Known Difficult Airway: No Mallampati Class: 3 Mouth Opening: Normal (> 3cm) Thyromental Distance: Greater than 3 cm Neck Range of Motion: Full ROM Neck Circumference: Thick Teeth Condition: Normal Dentition ASA Classification ASA Score: ASA 2 Emergency Case?: No NPO Status NPO Status: NPO Clears >2 hours, Solids >8 hours Anesthesia Plan Resuscitation Status: Full Code Anesthesia Technique: General Anesthesia Airway Planned: Natural Airway Pain Management: Surgeon and patient request nerve block Monitors Used: Standard Monitors
[2023-05-31] MEDS: ceFAZolin 2 GM/50 ML BAG IVPB (13:42)
[2023-05-31] MEDS: EPINEPHrine 10 MG/10 ML ML (14:13)
--- NOTE | 2023-05-31 14:22 | W.ANESNERVE ---
Nerve Block Single Injection Procedure Date and Time Date Performed: 05/31/23 Procedure Start: 13:09 Location Where Procedure Performed Procedure Location: Day Surgery Unit Reason Performed: Postoperative Analgesia Requesting Provider: Adair Lu Timeout Performed Timeout Performed: Yes Monitoring Used ECG, Blood Pressure and SpO2 Sterility Sterility: Hand Hygiene, Surgical Cap, Surgical Mask, Sterile Gloves and Chlorhexidine Sedation Given During Procedure Sedation Given (Indicate Dose Given): No Sedation given Patient Mental Status Patient Mental Status: Awake Nerve Block 1st Nerve Block: Laterality: Right Block Type: Interscalene Ultrasound Image Saved?: Yes Needle / Catheter Used: 100mm SonoPlex II Local Anesthetic Bolus (Indicate Dose Given): Lidocaine used for local infiltration of skin, Injected in 3-5ml increments after negative blood aspiration, Bupivacaine 0.5% Dose:: 10ml and Exparel Dose:: 10ml Additives (Indicate Dose Given): None Ultrasound: Sterile probe cover and gel used Nerve Stimulator: Supplement to Ultrasound use Paresthesia: None Procedure Tolerated: No Complications Procedure Outcome: Successful Performed By: Emily De La Cruz Supervised By: Jailene Andrews
--- NOTE | 2023-05-31 15:39 | W.ANESPOSTOP ---
Postoperative Evaluation Date, Time and Location Date Performed: 05/31/23 Time Performed: 15:39 Patient Location: Day Surgery Unit Vital Signs Most Recent Imported Vital Signs: Most Recent Vital Signs Temp Pulse Resp BP Pulse Ox 36.4 C L 50 L 16 142/98 H 97 05/31/23 15:15 05/31/23 15:25 05/31/23 15:25 05/31/23 15:25 05/31/23 15:25 Pain Score Most Recent Pain Score: Most Recent Pain Score Pain Level 0 05/31/23 15:25 Assessment Mental Status: Awake (Alert & Oriented to Patient Baseline) Airway and Respiratory Function: Patent airway with normal (patient baseline) respiratory exam Cardiovascular Function: Hemodynamically Stable Hydration Status: Adequately Hydrated Nausea & Vomiting: No Nausea or Vomiting Pain: Pt. Denies Any Pain Peripheral Nerve Block: Regional nerve block not resolved at time of post operative discharge
--- NOTE | 2023-05-31 16:15 | ROE_ITS ---
Date of service: 05/31/23 Time of Service: 14:00 Operative Note Operative Note DATE OF PROCEDURE: 05/31/23 PRE-OP DIAGNOSIS: Right biceps tendinitis and tear, right rotator cuff tendinitis with partial tearing, right shoulder bursitis POST-OP DIAGNOSIS: same (Frayed biceps tendon rupture remnant, partial articular and bursal sided rotator cuff tearing, subacromial bursitis with spur) PROCEDURE: - Extensive debridement of anterior and posterior glenohumeral joint and rotator cuff - Subacromial Debridement with Acromioplasty SURGEON: Adair Lu ANESTHESIA TYPE: General LMA/ETT and Primary Nerve Block Refer to Anesthesia Record ESTIMATED BLOOD LOSS: 0 PATHOLOGY: none sent COMPLICATIONS: None Patient was transported to: PACU Patient's condition: stable Indications: I have seen bull in clinic for a painful shoulder. Pathology was confirmed based on MRI and exam findings. Nonoperative measures were exhausted but disability and pain persisted. I discussed shoulder arthroscopy and procedures. I reviewed the risks of the procedures to include, but not limited to, bleeding, infection, pain, stiffness, damage to nerves or vessels, recurrence, hardware failure, blood clot. Despite these risks, the patient elected to proceed. Findings: A diagnostic arthroscopy was performed with the following findings: Articular Side - Glenohumeral Joint: No significant arthritic change - Labrum: Diffuse tearing of the labrum with fraying along its entire edge from 10:00 to 2:00 with some tearing from the glenoid insertion - Cuff: Articular-sided tearing within the crescent, approximate 4 to 5 mm in depth - Biceps: Previously torn biceps with large portions of remnant biceps tendon frayed and curled within the joint Subacromial Side - Bursal: Dense inflammatory changes and bursitis - Rotator Cuff: Partial tearing at the insertion of the rotator cuff superiorly and anteriorly., Also lining up with anterolateral spur - Anterolateral spur Procedure Description: Bull was greeted in the preoperative holding area where the correct side was identified and marked. The consent was reviewed with the patient and signed. The history and physical was updated. All questions were answered. He was administered an intrascalene nerve block in DSU. He was then taken to the operating room. The patient was placed into the supine position on the operating room table. A general anesthetic was administered. Bull was then positioned in the beach chair position. All bony prominences were well padded. The head was placed in a foam set up mechanic heading machines in a neutral position. Prophylactic antibiotics in the form of Cefazolin were administered. The right arm/shoulder was then prepped with Chloraprep and draped in a standard fashion with stockinette and shoulder drape. A timeout to confirm correct identity, side and site, procedure, allergies, anesthesia, and medical concerns was performed. The arm was placed into a pneumatic jimenez, [id number]. The shoulder arthroscopy was then performed. The glenohumeral joint was injected with 20 cc of normal saline with good flow back. A standard posterior portal was made and the joint was entered atraumatically with a blunt arthroscope. Once inside we had good visualization of the structures of the glenohumeral joint. An anterior portal was established with spinal needle localization. A 6.5 mm cannula was inserted. A probe was then used to perform a diagnostic arthroscopy. There is noted to be no significant cartilage damage of the glenoid humeral joint. The labrum was frayed throughout from 10:00 to 2:00 with tearing and fragmentation of the labrum and some tearing from the glenoid insertion superiorly. The superior rotator cuff was attached to the tuberosity although there was some tearing within the crescent. The biceps tendon was torn with multiple free fragments, Dory labrum, floating and curled within the joint. The groove was empty suggesting previous rupture. The subscapularis was intact. An aggressive debridement was performed of the remnant of the biceps tendon taking this all the way back to the base, its anchor on the labrum. An aggressive debridement is performed from the anterior to posterior aspect of the labrum superiorly. The labrum edges debrided of any loose fragments and flaps. There was some calcification and degeneration seen within the labrum. I also debrided the superior aspect of the glenoid to encourage some scarring of the labrum to the glenoid. The biceps anchor was debrided once again. Synovium from the anterior aspect of the shoulder as well as superiorly and posteriorly was also debrided. The shoulder was manipulated/I was able to visualize the crescent fibers. These were also debrided down. There appear to be healthy intact fibers at the depth of the wound with approximately 4 to 5 mm involvement of the partial articular sided tear. No complete tear was identified. The arthroscope was then inserted into the subacromial space. The 6.5 mm cannula was placed lateral to the CA ligament. Given that there was no significant tearing of the rotator cuff I went ahead and recessed the CA ligament off the anterolateral corner of the acromion. A complete bursectomy is performed anteriorly, posteriorly, and laterally with electrocautery and shaver. This had excellent exposure of the rotator cuff. The bursal side rotator cuff had some tearing, focus mostly over the anterior margin of the superior rotator cuff. There was fraying and some split of the fibers although no clear full- thickness defect. The seem to involve 3 to 5 mm of depth of the rotator cuff. I was unable to place a probe through the tendon although into the joint. The bursal side of the rotator cuff was then debrided of any loose fragments. Any remnant bursa was also resected. There was a downsloping anterolateral spur. Using a spinal needle a lateral portal was established. This became the viewing portal. A 5.0 mm gillian was then inserted from the posterior portal. The anterolateral corner of the acromion was then resected in plane with the posterior slope of the acromion. The scope equipment was removed from the shoulder. Excess fluid was evacuated. The portal sites were closed with 3-0 Monocryl. The wounds were dressed with 4 x 4's, ABDs, Medipore tape. A sling was applied. The patient tolerated the procedure well and was returned to the PACU in a sta ble condition suffering no known complication.
== END 2023-05-31 17:05 | disposition home or self-care (01) ==
PROVIDERS: PCP Family Medicine; Visit Provider Student in an Organized Health Care Education/Training Program
PROC: (CPT 29805; principal; 2023-05-31 14:45)
DX: M67.813 Other specified disorders of tendon, right shoulder (principal); M75.111 Incomplete rotator cuff tear or rupture of right shoulder, not specified as traumatic; M75.51 Bursitis of right shoulder; I45.10 Unspecified right bundle-branch block; E78.5 Hyperlipidemia, unspecified; J45.909 Unspecified asthma, uncomplicated; I10 Essential (primary) hypertension; K21.9 Gastro-esophageal reflux disease without esophagitis
CPT/HCPCS: 29823; 29826; 76942; C9290; J0665; J0690; J1100; J2001; J2371; J2405; J2704

== ENCOUNTER → 2023-06-13 09:04 | Outpatient (BNVA) | payer MEDICARE, BC, SELFPAY | PROVIDERS: PCP Family Medicine; Referring Provider Family Medicine; Visit Provider Student in an Organized Health Care Education/Training Program | DX: Z47.89 Encounter for other orthopedic aftercare (principal); M75.111 Incomplete rotator cuff tear or rupture of right shoulder, not specified as traumatic; M67.813 Other specified disorders of tendon, right shoulder ==

== ENCOUNTER 2023-08-26 05:10 | Outpatient (CLI) | payer MEDICARE, BC, SELFPAY ==
[2023-08-26 08:44] LABS: ALT 26 U/L (16-63); AST 17 U/L (15-37); Albumin 3.7 g/dL (3.4-5.0); Alkaline Phosphatase 105 U/L (46-116); Anion Gap 7.2 mmol/L (3-11); BUN 14 mg/dL (7-18); CO2 31.8 mmol/L (21.0-32.0); CREATININE 1.2 mg/dL (0.70-1.30); Calculated LDL 78 mg/dL (<100); Chloride 103 mmol/L (98-107); Cholesterol 151 mg/dL (<200); Estimated GFR 63.46 (mL/min/1.73m2); Glucose 98 mg/dL (74-106); HDL Cholesterol 53 mg/dL (40-60); Potassium 4.1 mmol/L (3.5-5.1); Sodium 142 mmol/L (136-145); Total Protein 6.9 g/dL (6.4-8.2); Triglyceride 103 mg/dL (<150)
[2023-08-26 18:28] LABS: PSA, Diagnostic 0.9 ng/mL (<=6.5)
== END 2023-08-26 05:11 | disposition home or self-care (01) ==
PROVIDERS: PCP Family Medicine; Visit Provider Family Medicine
DX: N40.0 Benign prostatic hyperplasia without lower urinary tract symptoms (principal); I10 Essential (primary) hypertension
CPT/HCPCS: 36415; 80053; 80061; 84153

== ENCOUNTER → 2023-12-08 07:48 | Outpatient (BNVA) | payer MEDICARE, BC, SELFPAY | PROVIDERS: PCP Family Medicine; Referring Provider Family Medicine; Visit Provider Physical Therapy Assistant | DX: Z12.11 Encounter for screening for malignant neoplasm of colon (principal); Z80.0 Family history of malignant neoplasm of digestive organs ==

== ENCOUNTER 2024-01-18 06:09 | Day surgery (SDC) | payer MEDICARE, BC, SELFPAY ==
[2024-01-18 06:28] VITALS: BP 119/77; PULSE 63; RESP 16; TEMP 36.2; O2SAT 98
--- NOTE | 2024-01-18 07:11 | W.ANESPRE ---
General Info Date of Service Date Performed: 01/18/24 Height: 5 ft 6 in Weight: 83.6 kg Body Mass Index (BMI): 29.7 Surgical Procedure: Operation Date: 01/18/24 07:35 Proposed Procedure Side Surgeon p Colonoscopy Mitchell Shahid MD Actual Procedure Side Surgeon p Colonoscopy Not Applicable Mitchell Shahid MD Meds Allergies and Home Medications Home Medication ?Medication ?Instructions ?Recorded acetaminophen 500 mg tablet 500 mg PO Q6H PRN pain #60 tabs 05/31/23 ibuprofen 600 mg tablet 600 mg PO TID PRN pain #60 tabs 05/31/23 atorvastatin 40 mg tablet 40 mg PO DAILY #90 tab-caps 06/07/23 finasteride 5 mg tablet 5 mg PO HS #90 tabs 06/07/23 sertraline 100 mg tablet 100 mg PO DAILY #90 tabs 06/07/23 tamsulosin 0.4 mg capsule (Flomax) 0.4 mg PO DAILY #90 caps 06/07/23 trazodone 50 mg tablet 50 mg PO QHS PRN sleep #90 tabs 06/07/23 mirabegron 25 mg tablet,extended 25 mg PO DAILY #90 tabs 09/29/23 release 24 hr (Myrbetriq) omeprazole 20 mg capsule,delayed 20 mg PO HS #90 caps 09/29/23 release bisacodyl 5 mg tablet,delayed 5 mg PO ONCE Colonoscopy Bowel 12/08/23 release Prep #4 tabs polyethylene glycol 3350 17 238 g PO ONCE #238 grams 12/08/23 gram/dose oral powder albuterol sulfate 90 mcg/actuation 1 puff inhalation Q4H PRN 12/29/23 aerosol inhaler shortness of breath or wheezing #18 grams amitriptyline 25 mg tablet 25 mg PO QHS #90 tabs 12/29/23 lisinopril 40 mg tablet 40 mg PO DAILY #90 tabs 12/29/23 melatonin 5 mg capsule 5 mg PO HS 12/29/23 Current Visit Medications: Current Medications Generic Name Dose Route Start Last Admin Trade Name Freq PRN Reason Stop Dose Admin Ringer's Solution 1,000 mls @ 80 mls/hr 01/18/24 06:00 IV 02/16/24 23:59 INFUSION KUNAL IV Miscellaneous Supplies 1 each 01/18/24 06:00 Iv Access IV 02/16/24 23:59 DIRECTED KUNAL Sodium Chloride 0 ml 01/18/24 06:00 Normal Saline Flush 10 Ml Syr IV 02/16/24 23:59 PRN PRN Sodium Chloride 0 ml 01/18/24 06:00 Normal Saline 10 Ml Vial IJ 02/16/24 23:59 DIRECTED PRN Sterile Water 0 ml 01/18/24 06:00 Water,Injection,Sterile 10 Ml Vial IJ 02/16/24 23:59 DIRECTED PRN PFSH Active Problems Active Problems: Problem Status Onset Code Peripheral vascular disease Chronic I73.9 Nail dystrophy Acute L60.3 Partial tear of right rotator cuff Acute M75.111 Sleep disorder Acute G47.9 Sensorineural hearing loss, unilateral, left ear, with unrestricted hearing on the contralateral side Acute H90.42 OAB (overactive bladder) Chronic N32.81 RBBB (right bundle branch block) Chronic I45.10 Obesity, Class I, BMI 30-34.9 Chronic E66.9 Hyperlipidemia Chronic E78.5 GERD (gastroesophageal reflux disease) Chronic K21.9 Essential hypertension Chronic I10 BPH (benign prostatic hyperplasia) Chronic 09/28/17 N40.0 Asthma Chronic J45.909 Anxiety Chronic F41.9 Adenomatous colon polyp Chronic D12.6 Medical History Medical History Tendinitis of left rotator cuff Depo-Medrol injection: 06/17/2022; 03/15/2022 Bruise Deafness in right ear Sensation of fullness in both ears Dysfunction of left eustachian tube Right ankle pain Diverticulosis H/O adenomatous polyp of colon (03/30/13) Colonoscopy at [facility] [place] with Dr Cr Mcnulty showed sessile polyp and turtuous sigmoid with scattered divertic. Asymmetrical sensorineural hearing loss Pain from implanted hardware R ankle Posterior tibial tendinitis, right leg (11/16/17) [facility] Duodenitis EROSIVE PER [facility] Decreased hearing of right ear (10/20/17) Closed trimalleolar fracture of right ankle with routine healing (06/17/17) S/P SURGERY 06/12 Surgical History Surgical History S/P colonoscopy (~09/05/18) History of bilateral carpal tunnel release History of neck surgery History of colonoscopy Status post open reduction with internal fixation (ORIF) of fracture of ankle Fracture, Open Treatment 05/2017 RIGHT ANKLE PER [facility] RECORDS Tobacco Smoking/Tobacco Use Status: Never Passive smoking exposure: Yes Second hand exposure: Yes Alcohol Alcohol Intake: current Alcohol intake frequency: a few times a week Alcohol type: hard liquor Substance Use Substance use: Never Substance use type: does not use Vital Signs and Lab Results Vital Signs Most Recent Vital Signs in EMR: Most Recent Vital Signs Temp Pulse Resp BP Pulse Ox 36.2 C L 63 16 119/77 98 01/18/24 06:28 01/18/24 06:28 01/18/24 06:28 01/18/24 06:28 01/18/24 06:28 Lab Results Blood Type / Crossmatch: No Data to Display Complete Blood Count: No Data to Display Complete Metabolic Panel: No Data to Display Liver Function Panel: No Data to Display Coagulation Panel: No Data to Display Cardiac Panel: No Data to Display Arterial Blood Gas: No Data to Display Venous Blood Gas: No Data to Display Pancreas Panel: No Data to Display Thyroid Panel: No Data to Display Infectious Disease: No Data to Display Blood Cultures: No Data to Display Toxicology Panel: No Data to Display Anesthesia Assessment and Plan Anesthesia History Personal History: No History of Anesthesia Complications Family History: No Family History of Anesthesia Complications Exercise Tolerance Exercise Tolerance: Metabolic Equivalents>4 Pertinent Negatives Pertinent Negatives: No Symptoms of GERD Cardiac & Pulmonary Exam Cardiac Exam: Normal S1/S2 Heart Sounds Pulmonary Exam: Clear Bilateral Breath Sounds Implantable Cardiac Device Does patient have a Pacemaker or an ICD?: No Airway Exam Known Difficult Airway: No Mallampati Class: 3 Mouth Opening: Normal (> 3cm) Thyromental Distance: Greater than 3 cm Neck Range of Motion: Full ROM Neck Circumference: Thick Teeth Condition: Normal Dentition ASA Classification ASA Score: ASA 2 Emergency Case?: No NPO Status NPO Status: NPO Clears >2 hours, Solids >8 hours Anesthesia Plan Resuscitation Status: Full Code Anesthesia Technique: General Anesthesia Airway Planned: Natural Airway Monitors Used: Standard Monitors
[2024-01-18 07:12] VITALS: BMI 29.7
[2024-01-18] MEDS: Lactated Ringers 1,000 ML 80 ML IV (07:27)
--- NOTE | 2024-01-18 07:39 | W.SURGCON ---
Date of service: 01/18/24 Time of Service: 07:39 Assessment and Plan Assessment and plan (1) Colon cancer screening: Status: Acute Assessment and plan: 74-year-old man with increased risk factors for colorectal cancer (sister with cancer). He has no symptoms. Due for surveillance. Overall plan: Colonoscopy History of Present Illness Narrative: 74-year-old man is due for surveillance colonoscopy. He has a sister had colon cancer. He is on a 5-year plan. No symptoms. He states that his prior colonoscopies have been normal. His last colonoscopy reported only diverticular changes in the sigmoid colon. No intra-abdominal surgical history. PFS All Active Problems (Updated 01/18/24 @ 07:40 by Mitchell Shahid MD) Colon cancer screening (Acute) Peripheral vascular disease (Chronic) Nail dystrophy (Acute) Partial tear of right rotator cuff (Acute) Sleep disorder (Acute) Sensorineural hearing loss, unilateral, left ear, with unrestricted hearing on the contralateral side (Acute) OAB (overactive bladder) (Chronic) RBBB (right bundle branch block) (Chronic) Obesity, Class I, BMI 30-34.9 (Chronic) Hyperlipidemia (Chronic) GERD (gastroesophageal reflux disease) (Chronic) Essential hypertension (Chronic) BPH (benign prostatic hyperplasia) (Chronic 09/28/17) Asthma (Chronic) Anxiety (Chronic) Adenomatous colon polyp (Chronic) Medical History (Updated 01/18/24 @ 07:40 by Mitchell Shahid MD) Tendinitis of left rotator cuff Depo-Medrol injection: 06/17/2022; 03/15/2022 Bruise Deafness in right ear Sensation of fullness in both ears Dysfunction of left eustachian tube Right ankle pain Diverticulosis H/O adenomatous polyp of colon (03/30/13) Colonoscopy at [facility] [place] with Dr Cr Mcnulty showed sessile polyp and turtuous sigmoid with scattered divertic. Asymmetrical sensorineural hearing loss Pain from implanted hardware R ankle Posterior tibial tendinitis, right leg (11/16/17) Hematuria NEG CYSTO PER [facility] RECORDS Duodenitis EROSIVE PER [facility] Decreased hearing of right ear (10/20/17) Closed trimalleolar fracture of right ankle with routine healing (06/17/17) S/P SURGERY 06/12 Surgical History S/P colonoscopy (~09/05/18) History of bilateral carpal tunnel release History of neck surgery History of colonoscopy Status post open reduction with internal fixation (ORIF) of fracture of ankle Fracture, Open Treatment 05/2017 RIGHT ANKLE PER [facility] RECORDS Family History Mother , 93 Lung cancer Father , 75 Heart disease Sister Colon cancer Breast cancer Brother , 69 Lung cancer Daughter No problems noted. Daughter No problems noted. Social History Smoking/Tobacco Use Status: Never Second Hand Exposure: Yes Smoking risk assessment performed?: Yes Alcohol Intake: current Alcohol Intake frequency: a few times a week Alcohol type: hard liquor Drug use: Never Substance use type: does not use Household members: spouse Housing: house Communication Needs: Hard of Hearing Pets and animals: No Sexually active: Yes Do you think of yourself as: straight/heterosexual Current gender identity: male What is your relationship status?: How often do you talk on the phone with friends or family?: three or more times per week How often do you get together with friends or relatives?: once per week How often do you attend holiness or quaker services?: decline to answer Do you belong to any clubs or organized social groups?: no Panel score (0-1 are the most socially isolated patients): 2 What type of physical activity do you participate in: walking and bicycling Duration: > 90 minutes/day Frequency: daily Veronika/Adventist: Jainism Special veronika needs: No Seatbelt use: always Helmet use: Yes Helmet use: sometimes Drive intox or ride w/intox wedding transportation driver: No Additional Social history: unable to assess privately Exam Narrative Exam Narrative: Gen: Non-toxic, comfortable and interactive Neuro: Alert and oriented x3 Psych: Good mood and affect. Good insight and understanding into condition. Chest: Non-labored breathing, no wheezing, no visible shortness of breath. Heart: Regular Results Last Vital Signs Temp 97.2 F L 01/18/24 06:28 Pulse 63 01/18/24 06:28 Resp 16 01/18/24 06:28 BP 119/77 01/18/24 06:28 Pulse Ox 98 09/25/24 06:28
--- NOTE | 2024-01-18 07:43 | COLE_ITS ---
Date of service: 01/18/24 Time of Service: 07:43 Colonoscopy Report Procedure Description: PROCEDURES PERFORMED: 1. Colonoscopy PREOPERATIVE DIAGNOSIS: Surveillance colonoscopy, family history colon cancer POSTOPERATIVE DIAGNOSIS: Sigmoid diverticulosis, grade 1 internal hemorrhoids SURGEON: Adela Shahid MD INDICATION FOR PROCEDURE: the patient is a 74-year-old man with a sister who had colon cancer. He has no symptoms. He has been doing colonoscopies every 5 year s. No polyps ever. Due for surveillance. FINDINGS: Normal terminal ileum. No polyps found anywhere. There is moderate sigmoid diverticulosis in the sigmoid colon only. There is some degree of si gmoid fibrosis but no stricture or active inflammation. Grade 1 internal hemorrhoids present. SURVEILLANCE interval/FOLLOW-UP: Because of the family history, I recommend continuing 5-year intervals for as long as he remains with a good life expectancy. SPECIMENS: None EBL: Minimal COMPLICATIONS: None QUALITY of prep: Excellent Procedure in detail: The patient gave written consent and was in agreement with the indications, the potential risks as well as the benefits of the procedure. They were taken to the endoscopy suite and laid in the left lateral decubitus position. A timeout was performed and anesthesia was administered which was tolerated well. I started the procedure. Digital rectal and visual examination was performed and grossly within normal limits. A well-lubricated flexible colonoscope was then introduced and passed without any notable difficulty all the way to the cecum identified by the ileocecal valve and the appendiceal orifice. The terminal ileum was intubated and looked normal. The scope was then slowly withdrawn with the above-noted findings. The patient tolerated the procedure well and was taken to the PACU in hemodynamically stable condition.
[2024-01-18 08:17] VITALS: BP 120/76; PULSE 55; RESP 15; TEMP 36.2; O2SAT 96
--- NOTE | 2024-01-18 08:17 | W.PM.DSUDISC ---
Date of service: 01/18/24 Time of Service: 08:17 Discharge Plan Disposition Patient Disposition: Home Condition: Good Discharge Details Attending Provider: Mitchell Shahid Primary Care Provider: Natalia Wick Home Meds and New Rx's Prescriptions: No Action atorvastatin 40 mg tablet 40 mg PO DAILY Qty: 90 11RF finasteride 5 mg tablet 5 mg PO HS Qty: 90 5RF sertraline 100 mg tablet 100 mg PO DAILY Qty: 90 4RF tamsulosin [Flomax] 0.4 mg capsule 0.4 mg PO DAILY Qty: 90 4RF trazodone 50 mg tablet 50 mg PO QHS PRN (Reason: sleep) Qty: 90 4RF melatonin 5 mg capsule 5 mg PO HS amitriptyline 25 mg tablet 25 mg PO QHS Qty: 90 4RF lisinopril 40 mg tablet 40 mg PO DAILY Qty: 90 5RF albuterol sulfate 90 mcg/actuation HFA aerosol inhaler 1 puff Inhalation Q4H PRN (Reason: shortness of breath or wheezing) Qty: 18 6RF bisacodyl 5 mg tablet,delayed release (DR/EC) 5 mg PO ONCE Qty: 4 0RF Rx Instructions: Per Colonoscopy bowel prep instructions polyethylene glycol 3350 17 gram/dose powder 238 g PO ONCE Qty: 238 0RF Rx Instructions: For Colonoscopy bowel prep, as directed by office omeprazole 20 mg capsule,delayed release(DR/EC) 20 mg PO HS Qty: 90 5RF mirabegron [Myrbetriq] 25 mg tablet extended release 24 hr 25 mg PO DAILY Qty: 90 3RF acetaminophen 500 mg tablet 500 mg PO Q6H PRN (Reason: pain) Qty: 60 2RF ibuprofen 600 mg tablet 600 mg PO TID PRN (Reason: pain) Qty: 60 0RF Discharge Instructions Additional Instructions: FINDINGS: No polyps were found today. No inflammation or anything concerning. Some diverticulosis was found today which is an extremely common condition, benign and nothing needs to be done about it. Because your family history should repeat another colonoscopy in 5 years. Stand Alone Forms: Colonoscopy Post Instructions Activity:: Activity as Tolerated Diet:: As Tolerated DS: Diagnosis Discharge Diagnosis (1) Colon cancer screening: Status: Acute
--- NOTE | 2024-01-18 08:43 | W.ANESPOSTOP ---
Postoperative Evaluation Date, Time and Location Date Performed: 01/18/24 Time Performed: 08:30 Patient Location: Day Surgery Unit Vital Signs Most Recent Imported Vital Signs: Most Recent Vital Signs Temp Pulse Resp BP Pulse Ox 36.2 C L 55 L 15 120/76 96 01/18/24 08:17 01/18/24 08:17 01/18/24 08:17 01/18/24 08:17 01/18/24 08:17 Pain Score Most Recent Pain Score: Most Recent Pain Score Pain Level 0 01/18/24 06:28 Assessment Mental Status: Awake (Alert & Oriented to Patient Baseline) Airway and Respiratory Function: Patent airway with normal (patient baseline) respiratory exam Cardiovascular Function: Hemodynamically Stable Hydration Status: Adequately Hydrated Nausea & Vomiting: No Nausea or Vomiting Pain: Pt. Denies Any Pain Peripheral Nerve Block: Patient did not receive a nerve block
[2024-01-18 08:55] VITALS: BP 124/74; PULSE 56; RESP 16; TEMP 36.2; O2SAT 97
== END 2024-01-18 09:15 | disposition home or self-care (01) ==
PROVIDERS: PCP Family Medicine; Visit Provider Student in an Organized Health Care Education/Training Program
PROC: 0DJD8ZZ Inspection of Lower Intestinal Tract, Via Natural or Artificial Opening Endoscopic (ICD-10-PCS; CPT 45378; principal; 2024-01-18 07:30)
DX: Z12.11 Encounter for screening for malignant neoplasm of colon (principal); K57.30 Diverticulosis of large intestine without perforation or abscess without bleeding; K64.0 First degree hemorrhoids; Z80.0 Family history of malignant neoplasm of digestive organs
CPT/HCPCS: G0105; 00123; J2704

== ENCOUNTER → 2024-02-22 15:00 | Outpatient (BNVA) | payer MEDICARE, BC, SELFPAY | PROVIDERS: PCP Family Medicine; Visit Provider Nurse Practitioner Gerontology | DX: N32.81 Overactive bladder (principal) | CPT/HCPCS: 51798; 99214 ==

== ENCOUNTER 2024-08-28 02:12 | Outpatient (CLI) | payer MEDICARE, BC, SELFPAY ==
[2024-08-28 13:22] LABS: HCT 40.6 % (40.0-50.0); HGB 14.3 g/dL (13.5-17.5); MCH 33.8 pg (27.0-33.0); MCHC 35.2 % (32.0-36.0); MCV 96 fL (80-95); MPV 9.7 fL (8.0-11.0); Platelet Count 215 10^3/uL (130-400); RBC 4.23 10^6/uL (4.36-5.78); RDW 11.8 % (11.8-14.1); RDW-SD 41.2 fL
[2024-08-28 13:40] LABS: Hemoglobin A1C 5.5 % (<5.7)
[2024-08-28 13:58] LABS: Iron 134 ug/dL (65-175)
[2024-08-28 14:13] LABS: ALT 35 U/L (16-63); AST 28 U/L (15-37); Albumin 3.7 g/dL (3.4-5.0); Alkaline Phosphatase 102 U/L (46-116); Anion Gap 7.1 mmol/L (3-11); BUN 23 mg/dL (7-18); Bilirubin, Total 0.9 mg/dL (0.2-1.0); CO2 27.9 mmol/L (21.0-32.0); Calculated LDL 76 mg/dL (<100); Chloride 102 mmol/L (98-107); Cholesterol 154 mg/dL (<200); Estimated GFR 78.49 (mL/min/1.73m2); Ferritin 463 ng/mL (26-388); Glucose 105 mg/dL (74-106); HDL Cholesterol 66 mg/dL (>or=40); Potassium 4.6 mmol/L (3.5-5.1); Sodium 137 mmol/L (136-145); Triglyceride 62 mg/dL (<150); Vitamin B12 464 pg/mL (193-986); Vitamin D 25 Total 42 ng/mL (30-100)
[2024-08-28 23:09] LABS: PSA, Diagnostic 0.6 ng/mL (<=6.5)
== END 2024-08-28 02:13 | disposition home or self-care (01) ==
PROVIDERS: PCP Family Medicine; Visit Provider Family Medicine
DX: E11.9 Type 2 diabetes mellitus without complications (principal); G47.9 Sleep disorder, unspecified; D64.9 Anemia, unspecified; G25.81 Restless legs syndrome; I10 Essential (primary) hypertension; N40.0 Benign prostatic hyperplasia without lower urinary tract symptoms
CPT/HCPCS: 36415; 80053; 80061; 82306; 85027; 82607; 82728; 83036; 83540; 84153